=== PATIENT | female | born 1940 | race Caucasian/White ===

== ENCOUNTER 2024-06-23 17:32 | Emergency (ER) | payer BC, MEDICARE ==
[~2024-06-23] VITALS: Ht 152.4 cm; Wt 54.4 kg
[2024-06-23] MEDS ORDERED: CALC500T88 PO (18:03)
[2024-06-23] MEDS ORDERED: ASPI-1101 PO (18:03)
[2024-06-23] MEDS ORDERED: CALC-1276 PO (18:03)
[2024-06-23] MEDS ORDERED: DONE5TAB34 PO (18:03)
[2024-06-23] MEDS ORDERED: LOPE2TAB25 PO (18:03)
[2024-06-23] MEDS ORDERED: MIRT-93 PO (18:03)
[2024-06-23] MEDS ORDERED: MELA5TAB20 PO (18:03)
[2024-06-23] MEDS ORDERED: RASA1TAB4 PO (18:03)
[2024-06-23] MEDS ORDERED: ALEN70TA80 PO (18:03)
[2024-06-23] MEDS ORDERED: ONDA4TAB5 PO (18:03)
[2024-06-23] MEDS ORDERED: CARB1TAB21 PO (18:03)
[2024-06-23 18:05] LABS: BASOPHILS # (AUTO) 0.1 K/UL (0.0-0.2); BASOPHILS % (AUTO) 0.8 % (0.0-2.0); EOSINOPHILS # (AUTO) 0.1 K/uL (0.0-0.7); HEMATOCRIT 33.6 % (31.2-41.9); LYMPHOCYTES # (AUTO) 2.1 K/uL (0.8-4.8); LYMPHOCYTES % (AUTO) 30.6 % (20.5-51.5); MEAN CORPUSCULAR HEMOGLOBIN 29.3 uug (24.7-32.8); MEAN CORPUSCULAR HGB CONC 33 g/dL (32.3-35.6); MEAN CORPUSCULAR VOLUME 89.8 fL (75.5-95.3); MONOCYTES # (AUTO) 0.5 K/uL (0.1-1.30); MONOCYTES % (AUTO) 6.6 % (0.0-11.0); NEUTROPHILS # (AUTO) 4.2 K/uL (1.8-8.9); PLATELET COUNT (AUTO) 293 K/uL (179-408); RED BLOOD CELL COUNT(AUTO) 3.75 MIL/uL (3.63-4.92); RED CELL DISTRIBUTION WIDTH 14.2 % (12.3-17.7); WHITE BLOOD COUNT (AUTO) 6.9 K/uL (3.8-11.8)
[2024-06-23 18:24] LABS: DIFFERENTIAL COMMENT 1
[2024-06-23 18:28] LABS: CALCIUM 9.2 mg/dL (8.5-10.1); CARBON DIOXIDE 29 mmol/L (21-32); CHLORIDE 104 mmol/L (98-107); CREATININE 0.7 mg/dL (0.6-1.3); GLUCOSE 90 mg/dL (74-106); SODIUM SERUM 141 mmol/L (136-145); UREA NITROGEN, BLOOD 25 mg/dL (7-18)
[2024-06-23 19:48] VITALS: BP 134/78; TEMP 98.7; O2SAT 97
== END 2024-06-23 19:48 | disposition home or self-care (01) ==
LOC: ER 17:32
DX: Z13.89 Encounter for screening for other disorder (principal); R51.9 Headache, unspecified; G20.A1 Parkinson's disease without dyskinesia, without mention of fluctuations; F02.80 Dementia in other diseases classified elsewhere, unspecified severity, without behavioral disturbance, psychotic disturbance, mood disturbance, and anxiety; R94.31 Abnormal electrocardiogram [ECG] [EKG]
CPT/HCPCS: 36415; 70450; 84484; 85025; A4606; A4663

== ENCOUNTER 2024-10-26 08:04 | Emergency (ER) | payer MEDICARE, BC ==
[~2024-10-26] VITALS: Ht 157.5 cm; Wt 68.0 kg
[~2024-10-26 08:04] MED LIST: ALEN70TA80 PO; ASPI-1101 PO; CALC-1276 PO; CALC500T88 PO; CARB1TAB21 PO; DONE5TAB34 PO; LOPE2TAB25 PO; MELA5TAB20 PO; MIRT-93 PO; ONDA4TAB5 PO; RASA1TAB4 PO
[2024-10-26 08:31] LABS: BASOPHILS % (AUTO) 0.4 % (0.0-2.0); EOSINOPHILS # (AUTO) 0.1 K/uL (0.0-0.7); EOSINOPHILS % (AUTO) 0.8 % (0.0-7.0); HEMATOCRIT 40.6 % (31.2-41.9); HEMOGLOBIN 13.2 g/dL (10.9-14.3); LYMPHOCYTES # (AUTO) 1.2 K/uL (0.8-4.8); LYMPHOCYTES % (AUTO) 11.3 % (20.5-51.5); MEAN CORPUSCULAR HEMOGLOBIN 28.8 uug (24.7-32.8); MEAN CORPUSCULAR HGB CONC 33 g/dL (32.3-35.6); MEAN CORPUSCULAR VOLUME 88.6 fL (75.5-95.3); MONOCYTES # (AUTO) 0.6 K/uL (0.1-1.30); MONOCYTES % (AUTO) 5.5 % (0.0-11.0); NEUTROPHILS # (AUTO) 8.7 K/uL (1.8-8.9); PLATELET COUNT (AUTO) 264 K/uL (179-408); RED BLOOD CELL COUNT(AUTO) 4.58 MIL/uL (3.63-4.92); RED CELL DISTRIBUTION WIDTH 13.7 % (12.3-17.7); WHITE BLOOD COUNT (AUTO) 10.6 K/uL (3.8-11.8)
[2024-10-26 08:33] LABS: DIFFERENTIAL COMMENT 1
[2024-10-26 08:44] LABS: ALANINE AMINOTRANSFERASE 20 U/L (14-59); ALBUMIN 3.5 g/dL (3.4-5.0); ALKALINE PHOSPHATASE 71 U/L (50-136); ASPARTATE AMINOTRANSFERASE 19 U/L (15-37); BILIRUBIN,DIRECT 0.1 mg/dL (0.0-0.2); BILIRUBIN,TOTAL 0.5 mg/dL (0.2-1.0); CALCIUM 9.1 mg/dL (8.5-10.1); CARBON DIOXIDE 29 mmol/L (21-32); CHLORIDE 109 mmol/L (98-107); CREATININE 0.9 mg/dL (0.6-1.3); GLUCOSE 93 mg/dL (74-106); POTASSIUM 4.3 mmol/L (3.5-5.1); SODIUM SERUM 147 mmol/L (136-145); TOTAL PROTEIN, SERUM 7.3 g/dL (6.4-8.2); UREA NITROGEN, BLOOD 22 mg/dL (7-18)
[2024-10-26] MEDS: IV NS 1000 ML 1,000 ML IV PRN (10:17)
[2024-10-26] MEDS ORDERED: ATOR20TA PO (10:43)
[2024-10-26] MEDS ORDERED: FLUT16SP NS (10:43)
[2024-10-26 11:10] LABS: *BILIRUBIN,URIN NEGATIVE (NEGATIVE); *BLOOD, URINE NEGATIVE (NEGATIVE); *CLARITY,URINE CLEAR (CLEAR); *COLOR,URINE YELLOW (YELLOW); *KETONES,URINE NEGATIVE (NEGATIVE); *PROTEIN,URINE NEGATIVE (NEGATIVE); *UROBILINOGEN,URINE 0.2 E.U./dl (NORMAL); LEUKOCYTE ESTERASE ,URINE TRACE (NEGATIVE); NITRITE, URINE POSITIVE (NEGATIVE); PH,URINE 6.5 (5.0-8.0); UGLUCOSE NEGATIVE (NEGATIVE)
[2024-10-26] MEDS ORDERED: FOSFOMYCIN TROMETHAMINE 3 GM PACKET ONE (12:47)
[2024-10-26] MEDS: FOSFOMYCIN TROMETHAMINE 3 GM PACKET PO ONE (12:50)
[2024-10-26 13:09] LABS: BACTERIA,URINE MANY /HPF (NONE SEEN); SQUAMOUS EPITHELIAL CELL,UR FEW /HPF (NONE SEEN); WBC,URINE 20-50 /HPF (0-3)
[2024-10-26] MEDS ORDERED: SULF1TAB48 PO (13:40)
[2024-10-26 15:29] VITALS: BP 148/72; O2SAT 95
== END 2024-10-26 15:32 | disposition home or self-care (01) ==
LOC: ER 08:08
DX: S20.212A Contusion of left front wall of thorax, initial encounter (principal); E86.0 Dehydration; N39.0 Urinary tract infection, site not specified; E78.5 Hyperlipidemia, unspecified; G20.A1 Parkinson's disease without dyskinesia, without mention of fluctuations; F02.80 Dementia in other diseases classified elsewhere, unspecified severity, without behavioral disturbance, psychotic disturbance, mood disturbance, and anxiety; Z79.82 Long term (current) use of aspirin; Z88.1 Allergy status to other antibiotic agents; Z88.6 Allergy status to analgesic agent; Z88.8 Allergy status to other drugs, medicaments and biological substances; W18.30XA Fall on same level, unspecified, initial encounter; Y93.89 Activity, other specified; Y92.89 Other specified places as the place of occurrence of the external cause; Y99.8 Other external cause status
CPT/HCPCS: 99285; 96360; 96361; 71045; 80076; 80048; 81001; 84443; 85025; 85730; 87186; 87086; 87077; 36415; 93005; J7040; A4606; A4663

== ENCOUNTER 2025-04-27 21:06 | Inpatient (IN) | payer MEDICARE, BC ==
[~2025-04-27] VITALS: Ht 160 cm; Wt 56.7 kg
[~2025-04-27 21:06] MED LIST changes: +ATOR20TA PO; +FLUT16SP NS; +SULF1TAB48 PO
[2025-04-27 21:34] LABS: PLATELET COUNT (AUTO) 201 K/uL (179-408); RED BLOOD CELL COUNT(AUTO) 4.50 MIL/uL (3.63-4.92); RED CELL DISTRIBUTION WIDTH 14.1 % (12.3-17.7); WHITE BLOOD COUNT (AUTO) 7.0 K/uL (3.8-11.8)
[2025-04-27] MEDS: IV NORMAL SALINE 1000 ML BAG IV ONE (21:39)
[2025-04-27 21:43] LABS: CREATININE 0.8 mg/dL (0.6-1.3); SODIUM SERUM 142 mmol/L (136-145); UREA NITROGEN, BLOOD 21 mg/dL (7-18)
[2025-04-27] MEDS ORDERED: MIRT-73 PO (21:47)
[2025-04-27] MEDS ORDERED: ASPI81TA31 PO (21:47)
[2025-04-27] MEDS ORDERED: CARB1TAB21 PO (21:47)
[2025-04-27] MEDS ORDERED: ONDA4TAB5 GT (21:47)
[2025-04-27] MEDS ORDERED: FLUT16SP EA NOSTRIL (21:47)
[2025-04-27] MEDS ORDERED: RASA1TAB4 PO (21:47)
[2025-04-27] MEDS ORDERED: LOPE2TAB25 PO (21:47)
[2025-04-27] MEDS ORDERED: CALC-1276 PO (21:47)
[2025-04-27] MEDS ORDERED: CALC-262 PO ×2 (21:47)
[2025-04-27 21:55] LABS: ASPARTATE AMINOTRANSFERASE 25 U/L (15-37); TOTAL PROTEIN, SERUM 7.5 g/dL (6.4-8.2)
[2025-04-27 22:05] VITALS: O2SAT 98
[2025-04-27] MEDS: ALBUTEROL SULFATE 2.5 MG/3 ML NEBU NEB ONE (22:05)
[2025-04-27] MEDS ORDERED: ALBUTEROL SULFATE 2.5 MG/3 ML NEBU ONE (22:09)
[2025-04-27 22:15] VITALS: O2SAT 100
[2025-04-27 22:30] LABS: ABG BASE EXCESS -3.2 mmol/L (-2.0-3.0); ABG HCO3 21.1 mmol/L (21.0-28.0); ABG PCO2 35.1 mmHg (32.0-45.0); ABG PH 7.396 (7.350-7.450); ABG PO2 115.0 mmHg (83.0-108.0); ABG SITE RIGHT RADIAL; ABG TOTAL HEMOGLOBIN 12.7 G/dL (12.0-16.0); AaDO2 98.2 mmHg; FIO2 28.0 %; FLOW, BLOOD GAS 2.00 L/min (0.00-30.00)
[2025-04-27 22:45] VITALS: BP 125/60
[2025-04-27] MEDS ORDERED: REMEDY ESSENTIAL ZINC PASTE 113 GM TP PRN (23:15)
[2025-04-27] MEDS ORDERED: ONDANSETRON 4 MG/2 ML VIAL IV PRN (23:15)
[2025-04-27] MEDS ORDERED: MAGNESIUM HYDROXIDE 30 ML LIQUID UDC PO PRN (23:15)
[2025-04-27] MEDS: ENOXAPARIN SODIUM 40 MG/0.4 ML DISP.SYRIN SQ SCH (23:15)
[2025-04-27 23:45] VITALS: BP 120/58; TEMP 98.3; O2SAT 90
[2025-04-28] VITALS (12 sets, daily range): BP systolic 106–149; BP diastolic 52–78; TEMP 98–98.7; O2SAT 90–100
[2025-04-28] MEDS: IV NS 1000 ML 1,000 ML IV PRN (00:52)
[2025-04-28] MEDS: ACETAMINOPHEN 325 MG TABLET PO PRN (04:51)
[2025-04-28 06:35] LABS: PLATELET COUNT (AUTO) 173 K/uL (179-408); RED BLOOD CELL COUNT(AUTO) 4.27 MIL/uL (3.63-4.92); RED CELL DISTRIBUTION WIDTH 13.8 % (12.3-17.7); WHITE BLOOD COUNT (AUTO) 6.6 K/uL (3.8-11.8)
[2025-04-28 06:50] LABS: CREATININE 0.9 mg/dL (0.6-1.3); SODIUM SERUM 143 mmol/L (136-145); UREA NITROGEN, BLOOD 16 mg/dL (7-18)
[2025-04-28] MEDS ORDERED: KETO15CR2 TP (08:59)
[2025-04-28] MEDS ORDERED: MELA5TAB PO (08:59)
[2025-04-28] MEDS ORDERED: ACET325T53 PO (09:00)
[2025-04-28] MEDS ORDERED: GUAIFENESIN/DEXTROMETHORPHAN 5 ML UDC PO PRN (09:15)
[2025-04-28] MEDS ORDERED: CALCIUM CARBONATE 500 MG TABLET PO PRN (10:00)
[2025-04-28] MEDS ORDERED: CALCIUM CARBONATE 500 MG TAB.CHEW PO PRN (10:15)
[2025-04-28] MEDS: ASPIRIN 81 MG TAB.CHEW PO SCH (10:41)
[2025-04-28] MEDS: CARBIDOPA/LEVODOPA 25-100MG TABLET PO SCH (12:05)
[2025-04-28] MEDS: IPRATROPIUM BROMIDE 0.5 MG/2.5 ML NEBU NEB SCH (13:37)
[2025-04-28] MEDS: ALBUTEROL SULFATE 2.5 MG/3 ML NEBU NEB SCH (13:37)
[2025-04-28] MEDS: MELATONIN 3 MG TABLET PO SCH (21:26)
[2025-04-28] MEDS: ATORVASTATIN 20 MG TABLET PO SCH (21:26)
[2025-04-28] MEDS: MIRTAZAPINE 15 MG TABLET PO SCH (21:26)
[2025-04-28] MEDS: DONEPEZIL 5 MG TABLET PO SCH (21:27)
[2025-04-28] MEDS: LEVOFLOXACIN/D5W 250 MG in PREMIX 1 EA IV SCH (21:27)
[2025-04-28] MEDS: GUAIFENESIN SUGAR FREE 100 MG/5 ML UDC PO PRN (21:28)
[2025-04-29] VITALS (11 sets, daily range): BP systolic 118–148; BP diastolic 56–64; TEMP 97.6–98.6; O2SAT 92–99
[2025-04-29 06:59] LABS: PLATELET COUNT (AUTO) 143 K/uL (179-408); RED BLOOD CELL COUNT(AUTO) 3.74 MIL/uL (3.63-4.92); RED CELL DISTRIBUTION WIDTH 13.8 % (12.3-17.7); WHITE BLOOD COUNT (AUTO) 4.3 K/uL (3.8-11.8)
[2025-04-29 07:11] LABS: CREATININE 0.7 mg/dL (0.6-1.3); SODIUM SERUM 147 mmol/L (136-145); UREA NITROGEN, BLOOD 20 mg/dL (7-18)
[2025-04-29] MEDS: KETOCONAZOLE 2% CREAM 30 GM TUBE TP SCH (08:34)
[2025-04-29] MEDS: FLUTICASONE PROP NASAL SPRAY 16 GM BOTTLE NS SCH (08:35)
[2025-04-29] MEDS: CALCIUM CARB/VITAMIN D 500MG-200UNITS TABLET PO SCH (08:37)
[2025-04-29] MEDS ORDERED: Medication Not On Formulary EA (Rasagiline Mesylate 1 MG) PO SCH (09:00)
[2025-04-29] MEDS: ENSURE ENLIVE (VAN) 240 ML LIQUID PO SCH (16:12)
[2025-04-30] VITALS (10 sets, daily range): BP systolic 143–154; BP diastolic 54–67; TEMP 97.3–98.1; O2SAT 91–97
[2025-05-01] VITALS (10 sets, daily range): BP systolic 145–154; BP diastolic 62–73; TEMP 97.5–98.2; O2SAT 88–99
[2025-05-01 07:19] LABS: PLATELET COUNT (AUTO) 195 K/uL (179-408); RED BLOOD CELL COUNT(AUTO) 4.21 MIL/uL (3.63-4.92); RED CELL DISTRIBUTION WIDTH 13.9 % (12.3-17.7); WHITE BLOOD COUNT (AUTO) 7.6 K/uL (3.8-11.8)
[2025-05-01 07:50] LABS: CREATININE 0.9 mg/dL (0.6-1.3); SODIUM SERUM 147 mmol/L (136-145); UREA NITROGEN, BLOOD 32 mg/dL (7-18)
[2025-05-01 09:27] LABS: LYMPHOCYTES % (MANUAL) 8 % (20-40); MONOCYTES % (MANUAL) 3 % (2-10); NEUTROPHILS % (MANUAL) 89 % (42-75); PLATELET ESTIMATE ADEQUATE
[2025-05-01] MEDS ORDERED: GUAI100S9 PO (10:10)
[2025-05-01] MEDS ORDERED: ALBU5SOL7 INH (10:10)
[2025-05-01] MEDS ORDERED: LEVO500T90 PO (10:10)
[2025-05-01] MEDS ORDERED: METH4TAB17 PO (10:10)
[2025-05-01] MEDS: POTASSIUM CHLORIDE 20 MEQ TAB.PRT.SR PO ONE (12:15)
== END 2025-05-01 18:00 | disposition home health service (06) | DRG 202 ==
LOC: ER 21:10 → TELE3 23:23 → MEDSURG3 04-29 08:00
PROVIDERS: ADMIT Internal Medicine; ATTEND Internal Medicine
DX: J20.9 Acute bronchitis, unspecified (principal); J96.01 Acute respiratory failure with hypoxia; F02.83 Dementia in other diseases classified elsewhere, unspecified severity, with mood disturbance; Z86.39 Personal history of other endocrine, nutritional and metabolic disease; G20.A1 Parkinson's disease without dyskinesia, without mention of fluctuations; F32.A Depression, unspecified; E78.5 Hyperlipidemia, unspecified; M81.0 Age-related osteoporosis without current pathological fracture; Z79.899 Other long term (current) drug therapy; Z79.82 Long term (current) use of aspirin; Z88.1 Allergy status to other antibiotic agents; I10 Essential (primary) hypertension; J45.909 Unspecified asthma, uncomplicated
CPT/HCPCS: 36415; 36600; 70030-TC; 71045; 83605; 83735; 84100; 84443; 85025; 85730; 87040; 94640; 94760; A4606; A4663; G0378; J1650; J1956; J2919; J3535; J3590; J7040